=== PATIENT | female | born 1935 | race Caucasian/White ===

== ENCOUNTER 2020-11-11 00:42 | Emergency (ER) | payer MEDICARE ==
[~2020-11-11] VITALS: Ht 162.6 cm; Wt 77.1 kg
[2020-11-11] MEDS ORDERED: IOPAMIDOL 370 MG/ML 200 ML INFUS..BTL INJ ONE (01:57)
[2020-11-11] MEDS ORDERED: SODIUM CHLORIDE 0.9% 50ML 50 ML ONE (01:57)
[2020-11-11] MEDS ORDERED: PYRIDIUM100 MG PO (03:16)
[2020-11-11] MEDS ORDERED: CIPRO500 MG PO (03:16)
[2020-11-11] MEDS ORDERED: CIPROFLOXACIN 500 MG TAB PO SCH (03:20)
[2020-11-11] MEDS ORDERED: CIPROFLOXACIN 500 MG TAB ONE (03:34)
== END 2020-11-11 03:26 | disposition home or self-care (01) ==
LOC: FSED 01:05
DX: R30.0 Dysuria (principal); R11.0 Nausea; R10.30 Lower abdominal pain, unspecified; N39.0 Urinary tract infection, site not specified; R74.8 Abnormal levels of other serum enzymes; K43.9 Ventral hernia without obstruction or gangrene
CPT/HCPCS: 74177; 80053; 81003; 85025; 99283; Q9967